=== PATIENT | male | born 1955 | race Caucasian/White ===

== ENCOUNTER 2019-10-27 | Observation (INO) | payer BC, OTHER ==
[~2019-10-27] VITALS: Ht 188 cm; Wt 105.0 kg
--- NOTE | 2019-10-27 00:22 | NUR ---
Patient brought in by [facility] for chest pain. Patient reports pain has resolved. x2 RN at bedside, emergency department hitch technician at bedside to complete electrocardiogram. Provider at bedside completing history and assessment. Electrocardiogram shows bigeminy. Patient placed on continuous youth nutritional monitor, bigeminal premature ventricular complexes are paroxysmal and patient goes back into sinus rhythm. Patient is alert, oriented, answers questions clearly and concisely. Rn provided with patient with urinal, returned on completion to void bladder, updated vital signs and temperature (both measurements within normal limts [see triage flowsheet].) Orders placed by provider. auto body repair technician to bedside, chest xray completed. Patient then educated on troponin as a measure of heart ischemia. Patient verbalized understanding, awaiting phlebotomy.
[2019-10-27 01:06] LABS: BASOPHILS # (AUTO) 0.03 x10^3/uL (0-0.1); BASOPHILS % (AUTO) 1 % (0-1); EOSINOPHILS # (AUTO) 0.12 x10^3/uL (0-0.4); EOSINOPHILS % (AUTO) 2 % (1-7); LYMPHOCYTES # (AUTO) 2.37 x10^3/uL (1-3.4); LYMPHOCYTES % (AUTO) 39 % (22-44); MD NO; MEAN CORPUSCULAR HEMOGLOBIN 29.5 pg (27.5-34.5); MEAN CORPUSCULAR HGB CONC 33.6 g/dL (33.2-36.2); MEAN CORPUSCULAR VOLUME 87.7 fL (81-97); MEAN PLATELET VOLUME 7.9 fL (7.4-10.4); MONOCYTES # (AUTO) 0.49 x10^3/uL (0.2-0.8); MONOCYTES % (AUTO) 8 % (2-9); NEUTROPHILS # (AUTO) 3.04 x10^3/uL (1.8-6.8); NEUTROPHILS % (AUTO) 50 % (42-75); PLATELET COUNT 164 x10^3/uL (130-400); RED BLOOD COUNT 5.43 x10^6/uL (4.38-5.82); RED CELL DISTRIBUTION WIDTH 13.6 % (9.4-14.8)
[2019-10-27 01:19] LABS: ALBUMIN 3.7 g/dL (3.4-5.0); ANION GAP 5 mmol/L (5-15); CHLORIDE 110 mmol/L (98-107)
[2019-10-27 01:27] LABS: CREATININE 0.98 mg/dL (0.7-1.3); TROPONIN I 0.021 ng/mL (0.000-0.045)
--- NOTE | 2019-10-27 02:01 | NUR ---
BREAK RN: PT. RESTING ON GURNEY WITH NO DISTRESS NOTED. DENIES PAIN. VS UPDATED. 300ML OF CLEAR YELLOW URINE EMPTIED FROM URINAL. PT. REPOSITIONED FOR COMFORT. LIGHTS DIMMED. AWAITING RECHECK BY ERP. DENIES NEEDS. ALL SAFETY MEASURES OBSERVED.
[2019-10-27] MEDS ORDERED: ACETAMINOPHEN 500 MG TABLET ONE (03:29)
[2019-10-27] MEDS ORDERED: ACETAMINOPHEN 500 MG TABLET PO ONE (03:30)
--- NOTE | 2019-10-27 03:34 | NUR ---
Provider reevaluated patient, to bedside informed patient of preference for admission. Patient agreeable. RN returned with analgesic medication, as patient reports having a slight headache. Awaiting for room placement/assessment from hospitalist.
[2019-10-27] MEDS ORDERED: POTASSIUM CHLORIDE 20 MEQ in LACTATED RINGERS 1,000 ML IV SCH (03:58)
[2019-10-27] MEDS ORDERED: NITROGLYCERIN 0.4 MG BOTTLE (25 TABS) SL PRN (04:00)
[2019-10-27] MEDS ORDERED: ACETAMINOPHEN 325 MG TABLET PO PRN (04:00)
[2019-10-27] MEDS ORDERED: PLEASE ENTER ALLERGIES MC SCH (04:00)
[2019-10-27] MEDS ORDERED: DOCUSATE 100 MG CAPSULE PO PRN (04:00)
[2019-10-27] MEDS ORDERED: ENOXAPARIN 40 MG/0.4 ML SQ SCH (04:00)
[2019-10-27] MEDS ORDERED: ONDANSETRON 2MG/ML, 2ML IVPush PRN (04:00)
[2019-10-27 04:21] LABS: INTERNATIONAL NORMALIZED RATIO 0.97 (0.93-1.1); PROTHROMBIN TIME 10.3 Seconds (9.6-11.5)
[2019-10-27 04:32] LABS: FREE T4 (FREE THYROXINE) 1.03 ng/dL (0.76-1.46)
[2019-10-27 04:35] LABS: ALANINE AMINOTRANSFERASE 37 U/L (12-78); ALBUMIN 3.7 g/dL (3.4-5.0)
[2019-10-27 04:36] LABS: ALKALINE PHOSPHATASE 73 U/L (45-117); TOTAL PROTEIN 6.8 g/dL (6.4-8.2)
[2019-10-27 04:40] LABS: BILIRUBIN, DIRECT < 0.1 mg/dL (0.1-0.2); BILIRUBIN,TOTAL < 0.1 mg/dL (0.2-1.0)
[2019-10-27] MEDS: SIMETHICONE 125 MG CHEW TAB PO SCH ×3 (05:13→16:00)
[2019-10-27] MEDS ORDERED: ASPIRIN 325 MG TABLET EC PO SCH (06:00)
[2019-10-27 06:30] VITALS: BP 136/87
[2019-10-27 07:19] LABS: TROPONIN I < 0.015 ng/mL (0.000-0.045)
[2019-10-27] MEDS ORDERED: PANTOPRAZOLE 40MG TABLET PO SCH (07:30)
[2019-10-27] MEDS ORDERED: REGADENOSON 0.4 MG/5 ML SYRINGE ONE (08:47)
[2019-10-27] MEDS ORDERED: LISINOPRIL 10 MG TABLET PO SCH (09:00)
[2019-10-27 12:24] VITALS: BP 139/84
[2019-10-27] MEDS ORDERED: ASPI-650 PO (15:20)
[2019-10-27] MEDS ORDERED: LISI-167 PO (15:20)
[2019-10-27] MEDS ORDERED: ATORVASTATIN 40 MG TABLET PO SCH (21:00)
== END 2019-10-27 16:00 | disposition home or self-care (01) ==
LOC: SUATTDRO 03:32 → ED 03:40 → EDIP 04:06 → 5SO 04:57
PROVIDERS: ADMIT Hospitalist; ATTEND Hospitalist
DX: R00.1 Bradycardia, unspecified (principal); I10 Essential (primary) hypertension; E78.5 Hyperlipidemia, unspecified; R42 Dizziness and giddiness; I49.3 Ventricular premature depolarization; R79.89 Other specified abnormal findings of blood chemistry; Z96.642 Presence of left artificial hip joint
CPT/HCPCS: 36415; 71045; 78452; 80048; 80076; 82040; 83690; 83735; 83880; 84100; 84439; 84443; 84484; 85025; 85610; 93005; 93017; 93306; 96360; 96361; 96372; 99285; A9502; C9898; G0378; J1650; J2785; J3480; J7120